=== PATIENT | male | born 1960 | race Caucasian/White ===

== ENCOUNTER 2022-12-23 08:28 | Outpatient (CLI) | payer OTHER, SELFPAY | END 2022-12-23 08:29 | disposition home or self-care (01) | LOC: NFLDREF 12-25 01:37 | PROVIDERS: Visit Provider Family Medicine | DX: E78.5 Hyperlipidemia, unspecified (principal); R73.03 Prediabetes; E66.9 Obesity, unspecified; Z12.5 Encounter for screening for malignant neoplasm of prostate | CPT/HCPCS: 80053; 80061; 84153 ==